=== PATIENT | male | born 1995 | race Caucasian/White ===

== ENCOUNTER 2017-06-24 15:58 | Emergency (ER) | payer MEDICAID, OTHER, SELFPAY ==
[~2017-06-24] VITALS: Ht 175.3 cm; Wt 84.1 kg
[~2017-06-24 15:58] MED LIST: /MELO7TA PO; ADDE10TA PO; ADDE5TAB PO; ALBU17IN INH; ALBU17IN2 INH; ALBUPOW9 XX; CELE10TA PO; DEPA250T2 PO; DEPA500T2 PO; EFFEXOR XR PO; LAMICTAL PO; PAXI20TA3 PO; RISP4TAB33 PO; TRAZ100T2 PO; TRAZ50TA2 PO; TRIL300S PO; TRIL600T PO
--- NOTE | 2017-06-24 19:23 | REP ---
Chest x-ray: Two views. History: Shortness of breath . Comparison study: November 12, 2011 . Findings: The lungs are well inflated and free of infiltrate. The pleural angles are sharp. The heart size is normal. Pulmonary vasculature is not increased. No significant bony abnormality is seen. Impression: Negative chest x-ray. Signed by Wagner Perkins MD 06/24/2017 07:14 P
[2017-06-24] MEDS ORDERED: ZITHTAB PO (19:27)
[2017-06-24 19:32] VITALS: BP 139/77
== END 2017-06-24 19:33 | disposition home or self-care (01) ==
LOC: M ED 15:58
DX: R59.0 Localized enlarged lymph nodes (principal); J20.9 Acute bronchitis, unspecified; Z72.0 Tobacco use; F12.10 Cannabis abuse, uncomplicated

== ENCOUNTER → 2019-02-27 | Outpatient (REF) | payer OTHER ==
[~2019-02-27] MED LIST changes: -/MELO7TA PO; +MOBI4TAB PO; +ZITHTAB PO
[2019-02-27 13:02] LABS: BASO % 0.6 % (0.0-1.0); EOS # 0.2 10^3/uL (0.0-0.50); EOS % 3.6 % (0.0-3.0); HEMATOCRIT 45.7 % (42.0-52.0); HEMOGLOBIN 15.7 g/dl (13.5-17.5); LYMPH # 2.2 10^3/uL (1.5-6.5); LYMPH % 32.5 % (24.0-44.0); MEAN CORPUSCULAR HEMOGLOBIN 29.7 pg (27.0-33.0); MEAN CORPUSCULAR HGB CONC 34.4 g/dl (32.0-36.5); MEAN CORPUSCULAR VOLUME 86.4 fl (80.0-96.0); MONO # 0.6 10^3/uL (0.0-0.8); MONO % 8.4 % (0.0-5.0); NEUTROPHILS # 3.7 10^3/uL (1.8-7.7); NEUTROPHILS % 54.8 % (36.0-66.0); PLATELET COUNT, AUTOMATED 226 10^3/uL (150-450); RED BLOOD COUNT 5.29 10^6/uL (4.30-6.10); WHITE BLOOD COUNT 6.7 10^3/uL (4.0-10.0)
[2019-02-27 13:15] LABS: ALBUMIN 4.3 GM/DL (3.2-5.2); ALT/SGPT 15 U/L (12-78); BILIRUBIN,TOTAL 0.3 MG/DL (0.2-1.0); BLOOD UREA NITROGEN 12 MG/DL (7-18); CALCIUM LEVEL 9.2 MG/DL (8.5-10.1); CARBON DIOXIDE LEVEL 27 MEQ/L (21-32); CHLORIDE LEVEL 108 MEQ/L (98-107); CHOLESTEROL LEVEL 129 MG/DL (<200); CHOLESTEROL RISK RATIO 3.909 (<5); FREE T4 1.03 NG/DL (0.76-1.46); GLOMERULAR FILTRATION RATE > 60.0 (>60); GLUCOSE, FASTING 94 MG/DL (70-100); HDL CHOLESTEROL 33 MG/DL (>40); LDL CHOLESTEROL 76 MG/DL (<100); NON-HDL-C 96 MG/DL; POTASSIUM SERUM 4.1 MEQ/L (3.5-5.1); SODIUM LEVEL 142 MEQ/L (136-145); TOTAL PROTEIN 7.3 GM/DL (6.4-8.2); TRIGLYCERIDES LEVEL 98 MG/DL (<150)
[2019-02-27 13:17] LABS: TOTAL 25(OH) VITAMIN D 25.4 NG/ML (30.0-100.0)
[2019-02-27 13:18] LABS: HEMOGLOBIN A1c 5.3 %
[2019-02-27 13:29] LABS: HEPATITIS B SURFACE ANTIGEN NEGATIVE (NEGATIVE)
[2019-02-27 13:56] LABS: HEPATITIS C VIRUS ABY INDEX 0.1 INDEX (<0.8)
[2019-02-27 13:57] LABS: HEPATITIS B CORE ANTIBODY IGM NEGATIVE (NEGATIVE); HIV 1&2 SCREEN CENTAUR NEGATIVE (NEGATIVE)
[2019-02-27 13:58] LABS: HEPATITIS A ANTIBODY IGM NEGATIVE (NEGATIVE)
[2019-02-27 14:00] LABS: APPEARANCE, URINE CLEAR (CLEAR); BACTERIA, URINE AUTO NEGATIVE (NEGATIVE); BILIRUBIN, URINE AUTO NEGATIVE (NEGATIVE); BLOOD, URINE BLOOD NEGATIVE (NEGATIVE); COLOR, URINE YELLOW (YELLOW); GLUCOSE, URINE (UA) AUTO NEGATIVE (NEGATIVE); KETONE, URINE AUTO NEGATIVE (NEGATIVE); LEUKOCYTE ESTERASE, URINE AUTO NEGATIVE (NEGATIVE); MUCUS, URINE SMALL (NEGATIVE); NITRITE, URINE AUTO NEGATIVE (NEGATIVE); PROTEIN, URINE AUTO NEGATIVE (NEGATIVE); RBC, URINE AUTO 1 /HPF (0-3); SPECIFIC GRAVITY URINE AUTO 1.023 (1.002-1.035); SQUAMOUS EPITHELIAL CELL UR AU 0 /HPF (0-6); UROBILINOGEN, URINE AUTO 0.2 mg/dL (0.0-2.0); WBC, URINE AUTO 1 /HPF (0-3)
[2019-02-27 15:30] LABS: CHLAMYDIA DNA AMPLIFICATION NEGATIVE (NEGATIVE); GC DNA AMPLIFICATION NEGATIVE (NEGATIVE)
[2019-03-03 00:07] LABS: HSV IgM TYPES 1&2 2.02 Ratio (0.00-0.90); Lyme Disease IgG/IgM Antibodie <0.91 ISR (0.00-0.90); Lyme Disease IgM Ab Quantitati <0.80 index (0.00-0.79)
== END ==
LOC: M LAB REF 12:38
PROVIDERS: ATTEND Family Medicine
DX: Z13.228 Encounter for screening for other metabolic disorders (principal); Z11.3 Encounter for screening for infections with a predominantly sexual mode of transmission

== ENCOUNTER → 2019-03-23 | Outpatient (CLI) | payer OTHER ==
--- NOTE | 2019-03-23 16:58 | REP ---
MRI of the lumbar spine without contrast Indication: Low back pain. Comparison: CT of the abdomen pelvis of 07/17/2011. Technique: MRI of the lumbar spine was performed without contrast utilizing sagittal T1, T2 and STIR weighted images as well as axial T1 and T2-weighted images. Findings: There is straightening of the lumbar that this is which could be positional or related to muscle spasm. There is mild levo curvature of the thoracolumbar spine. Vertebral body heights are maintained. There is disc desiccation and loss of disc height at L4-L5. There is multilevel central endplate irregularity consistent with Schmorl's node deformities. There is no bone marrow edema. The visualized spinal cord is unremarkable. The conus medullaris terminates at the T12-L1 level. The paraspinal soft tissues are unremarkable. Level specific observations: L1-L2, L2-L3, L3-L4: No significant spinal canal stenosis or neural foraminal compromise. L4-L5: Diffuse disc bulge. Mild narrowing of the spinal canal and right lateral recess. No significant neural foraminal narrowing. L5 S1: No significant spinal canal stenosis or neural foraminal compromise. Impression: At L4-L5, there is diffuse disc bulge resulting in mild narrowing of the spinal canal and right lateral recess. Electronically Signed by Barbara Bose MD 03/23/2019 10:18 A
== END ==
LOC: M RAD 07:08
PROVIDERS: ATTEND Family Medicine
DX: M51.26 Other intervertebral disc displacement, lumbar region (principal)

== ENCOUNTER 2020-02-20 20:16 | Emergency (ER) | payer OTHER ==
[2020-02-20] MEDS ORDERED: KETOROLAC 30 MG/ML 1ML VIAL As Ordered ONE (22:46)
[2020-02-20] MEDS ORDERED: ONDANSETRON 4MG/2ML VIAL As Ordered ONE (22:47)
[2020-02-20] MEDS ORDERED: ISOVUE-370 76% 100ML VIAL As Ordered ONE (23:55)
[2020-03-18 11:31] LABS: APPEARANCE, URINE HAZY (CLEAR); BACTERIA, URINE AUTO NEGATIVE (NEGATIVE); BILIRUBIN, URINE AUTO NEGATIVE (NEGATIVE); BLOOD, URINE BLOOD NEGATIVE (NEGATIVE); COLOR, URINE YELLOW (YELLOW); GLUCOSE, URINE (UA) AUTO NEGATIVE (NEGATIVE); KETONE, URINE AUTO NEGATIVE (NEGATIVE); LEUKOCYTE ESTERASE, URINE AUTO NEGATIVE (NEGATIVE); MUCUS, URINE LARGE (NEGATIVE); NITRITE, URINE AUTO NEGATIVE (NEGATIVE); PROTEIN, URINE AUTO 1+ mg/dL (NEGATIVE); RBC, URINE AUTO 2 /HPF (0-3); SPECIFIC GRAVITY URINE AUTO 1.027 (1.002-1.035); SQUAMOUS EPITHELIAL CELL UR AU 0 /HPF (0-6); UROBILINOGEN, URINE AUTO 0.2 mg/dL (0.0-2.0); WBC, URINE AUTO 3 /HPF (0-3)
[2020-03-18 14:32] LABS: BASO % 0.4 % (0.0-1.0); EOS # 0.1 10^3/uL (0.0-0.5); EOS % 0.8 % (0.0-3.0); HEMATOCRIT 44.6 % (42.0-52.0); HEMOGLOBIN 15.3 g/dl (13.5-17.5); LYMPH # 1.8 10^3/uL (1.5-5.0); LYMPH % 17.4 % (24.0-44.0); MEAN CORPUSCULAR HGB CONC 34.3 g/dl (32.0-36.5); MEAN CORPUSCULAR VOLUME 84.5 fl (80.0-96.0); MONO # 0.8 10^3/uL (0.0-0.8); MONO % 7.3 % (0.0-5.0); NEUTROPHILS # 7.6 10^3/uL (1.5-8.5); NEUTROPHILS % 73.7 % (36.0-66.0); PLATELET COUNT, AUTOMATED 236 10^3/uL (150-450); RED BLOOD COUNT 5.28 10^6/uL (4.30-6.10); WHITE BLOOD COUNT 10.3 10^3/uL (4.0-10.0)
[2020-03-29 08:22] LABS: ALBUMIN 4.5 GM/DL (3.2-5.2); ALT/SGPT 23 IU/L (0-32); BILIRUBIN,DIRECT 0.1 MG/DL (0.0-0.2); BILIRUBIN,TOTAL 0.6 MG/DL (0.2-1.0); BLOOD UREA NITROGEN 11 MG/DL (7-18); CALCIUM LEVEL 9.4 MG/DL (8.5-10.1); CARBON DIOXIDE LEVEL 27 mmol/L (20-29); CHLORIDE LEVEL 108 MEQ/L (98-107); CREATININE FOR GFR 1.04 MG/DL (0.70-1.30); GLOMERULAR FILTRATION RATE > 60.0 (>60); GLUCOSE, FASTING 85 MG/DL (70-100); SODIUM LEVEL 141 MEQ/L (136-145); TOTAL PROTEIN 7.7 GM/DL (6.4-8.2)
[2020-03-29 08:23] LABS: LIPASE 67 U/L (73-393)
== END 2020-02-21 01:30 | disposition home or self-care (01) ==
LOC: M ED 20:16
DX: R10.9 Unspecified abdominal pain (principal); R11.2 Nausea with vomiting, unspecified; Z88.0 Allergy status to penicillin; Z88.5 Allergy status to narcotic agent; F17.210 Nicotine dependence, cigarettes, uncomplicated; F12.20 Cannabis dependence, uncomplicated
CPT/HCPCS: 74177; 80048; 80076; 81001; 83690; 85025; 96361; 96374; 96375; 99283; J1885; J2405; Q9967

== ENCOUNTER 2020-05-06 20:20 | Emergency (ER) | payer OTHER, SELFPAY ==
[~2020-05-06] VITALS: Ht 175.3 cm; Wt 85.4 kg
[2020-05-06 20:21] VITALS: BP 132/69
--- NOTE | 2020-05-06 21:13 | REPVR ---
PROCEDURE INFORMATION: Exam: XR Left Foot Complete Exam date and time: 05/06/2020 8:31 PM Age: 24 years old Clinical indication: Pain; Foot; Left; Additional info: Injury/pain TECHNIQUE: Imaging protocol: XR Left foot. Views: 3 or more views. COMPARISON: No relevant prior studies available. FINDINGS: Bones/joints: Normal. No fracture. Soft tissues: Normal. IMPRESSION: Negative left foot. Electronically signed by: Jarret Layne On 05/06/2020 21:13:24 PM
== END 2020-05-06 22:33 | disposition home or self-care (01) ==
LOC: M ED 20:20
DX: S97.112A Crushing injury of left great toe, initial encounter (principal); W20.8XXA Other cause of strike by thrown, projected or falling object, initial encounter; Y92.9 Unspecified place or not applicable; Y99.0 Civilian activity done for income or pay; F17.200 Nicotine dependence, unspecified, uncomplicated; Z88.0 Allergy status to penicillin; Z88.6 Allergy status to analgesic agent

== ENCOUNTER 2020-08-08 15:54 | Emergency (ER) | payer OTHER ==
[~2020-08-08] VITALS: Ht 177.8 cm; Wt 80.1 kg
--- OUTSIDE RECORDS SUMMARY | 2020-08-08 16:00 | CCD ---
Author Author [facility] Organization [facility] Address Unknown Phone Unavailable Care Team Providers Care Respiratory Coordinator Name Role Phone YESICA MENENDEZ MICHAEL RPA-C Unavailable Unavailable MENENDEZ, YESICA MICHAEL RPA-C Unavailable Unavailable MENENDEZ, YESICA MICHAEL RPA-C Unavailable Unavailable MENENDEZ, YESICA MICHAEL RPA-C Unavailable Unavailable MENENDEZ, YESICA MICHAEL RPA-C Unavailable Unavailable MENENDEZ, YESICA MICHAEL RPA-C Unavailable Unavailable MENENDEZ, EYSICA MICHAEL RPA-C Unavailable Unavailable MENENDEZ, YESICA MICHAEL RPA-C Unavailable Unavailable MENENDEZ, YESICA MICHAEL RPA-C Unavailable Unavailable MENENDEZ, YESICA MICHAEL RPA-C Unavailable Unavailable MENENDEZ, YESICA MICHAEL RPA-C Unavailable Unavailable MENENDEZ, YESICA MICHAEL RPA-C Unavailable Unavailable MENENDEZ, YESICA MICHAEL RPA-C Unavailable Unavailable MENENDEZ, YESICA MICHAEL RPA-C Unavailable Unavailable MENENDEZ, YESICA MICHAEL RPA-C Unavailable Unavailable MENENDEZ, YESICA MICHAEL RPA-C Unavailable Unavailable MENENDEZ, YESICA MICHAEL RPA-C Unavailable Unavailable MENENDEZ, YESICA MICHAEL RPA-C Unavailable Unavailable MENENDEZ, YESICA MICHAEL RPA-C Unavailable Unavailable MENENDEZ, YESICA MICHAEL RPA-C Unavailable Unavailable MENENDEZ, YESICA MICHAEL RPA-C Unavailable Unavailable MENENDEZ, YESICA MICHAEL RPA-C Unavailable Unavailable MENENDEZ, YESICA MICHAEL RPA-C Unavailable Unavailable MENENDEZ, YESICA MICHAEL RPA-C Unavailable Unavailable MENENDEZ, YESICA MICHAEL RPA-C Unavailable Unavailable MENENDEZ, YESICA MICHAEL RPA-C Unavailable Unavailable MNEENDEZ, YESICA MICHAEL RPA-C Unavailable Unavailable MENENDEZ, YESICA MICHAEL RPA-C Unavailable Unavailable MENENDEZ, YESICA MICHAEL RPA-C Unavailable Unavailable MENENDEZ, YESICA MICHAEL RPA-C Unavailable Unavailable MENENDEZ, YESICA MICHAEL RPA-C Unavailable Unavailable MENENDEZ, YESICA MICHAEL RPA-C Unavailable Unavailable MENENDEZ, YESICA MICHAEL RPA-C Unavailable Unavailable MENENDEZ, YESICA MICHAEL RPA-C Unavailable Unavailable MENENDEZ, YESICA MICHAEL RPA-C Unavailable Unavailable MENENDEZ, YESICA MICHAEL RPA-C Unavailable Unavailable MENENDEZ, YESICA MICHAEL RPA-C Unavailable Unavailable MENENDEZ, YESICA MICHAEL RPA-C Unavailable Unavailable Vanessa CHAVEZ MD Unavailable Unavailable Vanessa CHAVEZ MD Unavailable Unavailable Vanessa CHAVEZ MD Unavailable Unavailable Vanessa CHAVEZ MD Unavailable Unavailable Vanessa CHAVEZ MD Unavailable Unavailable Vanessa CHAVEZ MD Unavailable Unavailable Vanessa CHAVEZ MD Unavailable Unavailable Vanessa CHAVEZ MD Unavailable Unavailable Vanessa CHAVEZ MD Unavailable Unavailable Vanessa CHAVEZ MD Unavailable Unavailable Vanessa CHAVEZ MD Unavailable Unavailable Vanessa CHAVEZ MD Unavailable Unavailable Vanessa CHAVEZ MD Unavailable Unavailable Vanessa CHAVEZ MD Unavailable Unavailable Vanessa CHAVEZ MD Unavailable Unavailable Vanessa CHAVEZ MD Unavailable Unavailable Vanessa CHAVEZ MD Unavailable Unavailable Vanessa CHAVEZ MD Unavailable Unavailable Vanessa CHAVEZ MD Unavailable Unavailable Vanessa CHAVEZ MD Unavailable Unavailable Vanessa CHAVEZ MD Unavailable Unavailable Vanessa CHAVEZ MD Unavailable Unavailable Vanessa CHAVEZ MD Unavailable Unavailable Vanessa CHAVEZ MD Unavailable Unavailable Vanessa CHAVEZ MD Unavailable Unavailable Vanessa CHAVEZ MD Unavailable Unavailable Vanessa CHAVEZ MD Unavailable Unavailable Vanessa CHAVEZ MD Unavailable Unavailable Vanessa CHAVEZ MD Unavailable Unavailable Vanessa CHAVEZ MD Unavailable Unavailable Vanessa CHAVEZ MD Unavailable Unavailable Vanessa CHAVEZ MD Unavailable Unavailable Vanessa CHAVEZ MD Unavailable Unavailable Vanessa CHAVEZ MD Unavailable Unavailable Vanessa CHAVEZ MD Unavailable Unavailable Vanessa CHAVEZ MD Unavailable Unavailable Vanessa CHAVEZ MD Unavailable Unavailable Vanessa CHAVEZ MD Unavailable Unavailable Vanessa CHAVEZ MD Unavailable Unavailable Vanessa CHAVEZ MD Unavailable Unavailable Vanessa CHAVEZ MD Unavailable Unavailable Vanessa CHAVEZ MD Unavailable Unavailable Vanessa CHAVEZ MD Unavailable Unavailable Vanessa CHAVEZ MD Unavailable Unavailable Vanessa CHAVEZ MD Unavailable Unavailable Vanessa CHAVEZ MD Unavailable Unavailable Vanessa CHAVEZ MD Unavailable Unavailable Vansesa CHAVEZ MD Unavailable Unavailable Vanessa CHAVEZ MD Unavailable Unavailable Vanessa CHAVEZ MD Unavailable Unavailable Vanessa CHAVEZ MD Unavailable Unavailable Vanessa CHAVEZ MD Unavailable Unavailable Vanessa CHAVEZ MD Unavailable Unavailable Vanessa CHAVEZ MD Unavailable Unavailable Vanessa CHAVEZ MD Unavailable Unavailable Vanessa CHAVEZ MD Unavailable Unavailable Vanessa CHAVEZ MD Unavailable Unavailable Vanessa CHAVEZ MD Unavailable Unavailable Vanessa CHAVEZ MD Unavailable Unavailable Vanessa CHAVEZ MD Unavailable Unavailable Vanessa CHAVEZ MD Unavailable Unavailable Vanessa CHAVEZ MD Unavailable Unavailable Vanessa CHAVEZ MD Unavailable Unavailable Vanessa CHAVEZ MD Unavailable Unavailable Vanessa CHAVEZ MD Unavailable Unavailable Vanessa CHAVEZ MD Unavailable Unavailable Vanessa CHAVEZ MD Unavailable Unavailable Vanessa CHAVEZ MD Unavailable Unavailable SAMMY, T CASEY MD Unavailable Unavailable SAMMY, T CASEY MD Unavailable Unavailable SAMMY, T CASEY MD Unavailable Unavailable SAMMY, T CASEY MD Unavailable Unavailable SAMMY, T CASEY MD Unavailable Unavailable SAMMY, T CASEY MD Unavailable Unavailable SAMMY, T CASEY MD Unavailable Unavailable SAMMY, T CASEY MD Unavailable Unavailable SAMMY, T CASEY MD Unavailable Unavailable SAMMY, T CASEY MD Unavailable Unavailable SAMMY, T CASEY MD Unavailable Unavailable SAMMY, T CASEY MD Unavailable Unavailable SAMMY, T CASEY MD Unavailable Unavailable SAMMY, T CASEY MD Unavailable Unavailable SAMMY, T CASEY MD Unavailable Unavailable [facility], RFROST MENENDEZ PA MICHAEL Unavailable Unavailable Re-disclosure Warning The records that you are about to access may contain information from federally-assisted alcohol or drug abuse programs. If such information is present, then the following federally mandated warning applies: This information has been disclosed to you from records protected by federal confidentiality rules (42 CFR part 2). The federal rules prohibit you from making any further disclosure of this information unless further disclosure is expressly permitted by the written consent of the person to whom it pertains or as otherwise permitted by 42 CFR part 2. A general authorization for the release of medical or other information is NOT sufficient for this purpose. The Federal rules restrict any use of the information to criminally investigate or prosecute any alcohol or drug abuse patient.The records that you are about to access may contain highly sensitive health information, the redisclosure of which is protected by Article 27-F of the [facility] Public Health law. If you continue you may have access to information: Regarding HIV / AIDS; Provided by facilities licensed or operated by the [facility] Office of Mental Health; or Provided by the [facility] Office for People With Developmental Disabilities. If such information is present, then the following [facility] mandated warning applies: This information has been disclosed to you from confidential records which are protected by state law. State law prohibits you from making any further disclosure of this information without the specific written consent of the person to whom it pertains, or as otherwise permitted by law. Any unauthorized further disclosure in violation of state law may result in a fine or long term sentence or both. A general authorization for the release of medical or other information is NOT sufficient authorization for further disc losure. Encounters Encounter Providers Location Date Indications Data Source(s ) Outpatient Attender: JERRY DOMÍNGUEZ [facility] 04/28 12:24:02 PM EDT [facility] Outpatient Attender: JERRY DOMÍNGUEZ [facility] 08/2019 08:15:00 AM EDT [facility] Outpatient Attender: MICHAEL SHON STONE [facility] 03/30/2020 08:14:59 AM EDT [facility] Outpatient Attender: JERRY DOMÍNGUEZ [facility] 02/27 04:07:03 PM EDT [facility] Outpatient Attender: MICHAEL SHON [facility]TC [facility] 03/25/2020 04:07:01 PM EDT [facility] Outpatient Attender: JERRY FERNANDEZIN [facility] 02/26 12:54:01 PM EDT [facility] Outpatient Attender: JERRY FERNANDEZIN [facility] 02/26 11:39:02 AM EDT [facility] Outpatient Attender: MICHAEL STONE [facility] 03/01/2020 12:16:01 PM EDT [facility] Outpatient Attender: CASEY CHAVEZ MD 02/18/2020 08:50:01 A M [facility] Outpatient Attender: CASEY CHAVEZ MD 02/03/2020 08:27:01 A M EDT [facility] Outpatient Attender: CASEY CHAVEZ [facility]: [facility] 01/25/2020 11:00:08 A M [facility] Outpatient Attender: CASEY CHAVEZ MD 01/25/2020 11:00:06 A M EDT [facility] Outpatient Attender: CASEY CHAVEZ MD 01/25/2020 10:27:05 A M EDT [facility] Outpatient Attender: CASEY CHAVEZ MD 01/25/2020 10:24:00 A M EDT [facility] Outpatient Attender: CASEY CHAVEZ MD 12/28/2019 12:02:05 A M EDT [facility] Outpatient Attender: CASEY CHAVEZ MD 06/17/2019 02:12:00 P M EST [facility] Medications Medication Brand Name Start Date Product Form Dose Route Admi nistrative Instructions Pharmacy Instructions Status Indications Reaction Description Data Source(s) 20 mg 03/01/2020 12:00:00 AM EDT capsule,delayed release (DR/EC) 30 TAKE ONE CAPSULE BY MOUTH EVERY MORNING ON EMPTY STOMACH TAKE ONE CAPSULE BY MOUTH EVERY MORNING ON EMPTY STOMACH SOLD: 03/03/2020 [facility] 300 mg 01/25/2020 12:00:00 AM EDT capsule 28 TAKE ONE CAPSULE BY MOUTH EVERY 6 HOURS UNTIL FINISHED TAKE ONE CAPSULE BY MOUTH EVERY 6 HOURS UNTIL FINISHED SOLD: 01/25/2020 [facility] Insurance Providers Payer name Policy type / Coverage type Policy ID Covered republican ID Covered republican's relationship to [place] Policy [place] Plan Information [facility] [id number] SP [id number] [facility] O [id number] S [id number] SELF PAY ONLY [id number] SP [id number] [facility] [id number] SP [id number] Managed Care - [facility] Community Plan P [id number] S [id number] Medicaid S [id number] S [id number] Managed Care [facility] Plan P [id number] S [id number] D Managed Care [facility] O [id number] S [id number] Managed Care [facility] Plan P [id number] S [id number] Medicaid S [id number] S [id number] Medicaid Dental O [id number] S [id number] ALEC [id number] SP [id number] [facility] [id number] SP [id number] Managed Care - Community Plan [facility] P [id number] S [id number] Managed Care - Community Plan [facility] P [id number] S [id number] Medicaid S [id number] S [id number] MEDICAID [id number] SP [id number] MEDICAID ([id number] SELF PAY ONLY UNAVAILABLE UNAV AILABLE SELF PAY UNAVAILABLE UNAVAILA BLE [facility] [id number] SELF CP [id number] MEDICAID [id number] SELF [id number] MEDICAID [id number] SELF [id number] Managed Care - Community Plan [facility] P [id number] S [id number] Managed Care - Community Plan [facility] S [id number] S [id number] [facility] PLAN [id number] SP [id number] ALEC [id number] ARABELLA [id number] ALEC [id number] SP [id number] O BLUE [id number] Problems, Conditions, and Diagnoses Code Display Name Description Problem Type Effective Dates Data Source(s) 305.1 Tobacco user Tobacco user 03/01/2020 12:15:31 P M EDT [facility] R10.84 Generalized abdominal pain Generalized abdominal pain 03/01/2020 12:15:31 PM EDT [facility] 530.81 Gastro-esophageal reflux disease without esophagitis Gastro-esophageal reflux disease without esophagitis 03/01/2020 12:15:31 PM ED T [facility] 525.10 Teeth extraction Teeth extraction 01/25/2020 10 :59:37 AM EDT [facility] Results ID Date Data Source [id number] 03/01/2020 11:47:35 AM T [facility] Measurements & CalculationsHeight: 71.50 inches 181.61 cm 5 ft. 11.5 in.Weight: 182 pounds 2 oz. 82.79 kg Body Mass Index (BMI): 25.14BMI Interpretation: OverweightBody Surface Area (BSA): 2.04Weight Management Education Done (Nutrition/Physical Activity)Vital SignsTemperature: 98.6F 37C tympanic Pulse Rate: 73 beats/minuteRespiratory Rate: 18 respirations/minuteBlood Pressure: 109/71 right arm sitting automaticO2 Saturation: 97% Vital Signs performed by: Olamide Buck LPN, March 01, 2020 11:48 AMInitial Intake Information From: patientRoom #: 1Infectious Disease / Travel ScreeningRecent travel for you or any close contacts? NoHave you had any close contact with anyone diagnosed with or under investigation for COVID-19 (coronavirus)? NoFever? NoRespiratory symptoms: cough, cold, congestion, shortness of breath, difficulty breathing? NoLoss of smell? NoLoss of taste? NoSmoking, Tobacco, Vaping or Smoke Exposure StatusSmoke Status: current every day smokerTobacco Use: YesAdv to Quit: YesDo you vape? NoPassive Smoke Exposure: YesHealthcare HistorySince your last office visit...Have you been admitted to the hospital? NoHave you been to an emergency room (ER) or urgent care clinic? Yes - stomach pains. SMCEmergency room (ER) or urgent care date reported today: 02/20/2020Have you seen another healthcare provider? NoHave you seen a dentist? NoIntake performed by: Olamide Buck LPN, March 01, 2020 11:48 AMRate Your HealthIn general, would you say your health is? FairPain AssessmentAre you currently having any pain which... You would like your provider to address? No Affects your activity level? NoDepression Screening - PHQ-2Over the last two weeks, have you... Had little interest or pleasure in doing things? Not at all Been feeling down, depressed, or hopeless? Not at all PHQ-2 Score: 0Anxiety Screening - LUCIA-2Over the last two weeks, have you been... Feeling nervous, anxious, or on edge? Several days Unable to stop or control worrying? Several days LUCIA-2 Score: 2Food InsecurityWithin the past year...Did you worry whether your food would run out before you got money to buy more? NoWas there a time when the food you bought didn't last and you didn't have money to get more? NoGeneralized Anxiety Disorder 7-Item Screening (LUCIA-7)Answer Guide:0 = Not at all1 = Several days2 = Over half the days3 = Nearly every dayOver the last 2 weeks, how often have you been bothered by the following problems?Feeling nervous, anxious, or on edge: 1Not being able to stop or control worryinWorrying too much about different things: 1Trouble relaxinBeing so restless that it's hard to sit still: 1Becoming easily annoyed or irritable: 1Feeling afraid as if something awful might happen: 1Answer Guide:0 = Not difficult at all1 = Somewhat difficult2 = Very difficult3 = Extremely difficultHow difficult have these made it for you to do your work, take care of things at home, or get along with other people? 1GAD- 7 Screening Results LUCIA-2 Score: 2GAD-7 Score: 7Functional Impairment: Somewhat difficultRecommendation: Mild anxietyScreening, Brief Intervention, & Referral to Treatment (SBIRT)Pre-Screening Questions How many times have you have 5 or more drinks in a day? 0How many times have you used an illegal drug or used a prescription medication for a non-medical reason? 0Performed by: Olamide Buck LPN, March 01, 2020 11:53 AMPatient History Medical History:AsthmaAnxiety DisorderDepressionBi-polarADHDSurgical History:bilateral hernia-age 3elbow repairR knee arthoscopeFamily History:Family History of AlcoholismFamily History of ArthritisFH of AnxietyFamily History of AsthmaFH DepressionFH DiabetesFH Heart DiseaseFamily History of Severe AllergiesFH Other CancerFH Psychiatric CareFH P M SSocial/Personal History: Advised to Quit/Tobacco Education: YesChief Complainter f/uHistory of Present Illness (HPI)24 yo male pt presents for [facility] ER f/u for stomach pain. Pt was seen at [facility] ER 02/20/2020, unfortunately no records are available due to [facility] computer downtime currently. Pt reports they did a CT scan with contrast, reports "internal stressor on the right side" that could represent an ulcer but too small to see. Blood work was "perfect" per patient. ER discharged him with dicyclomine, has been taking as needed with initial relief but none in the last few days. Pt's girlfriend states has been going on 3.5 months. Pt states on 02/15/2020 he states he vomited blood one episode: food, mucous, and bright red blood. Admits to significant heartburn chronically that he states no one has ever treated for him.HPI performed by: Michael PANCHAL, March 01, 2020 12:01 PMTransitions of Care InboundProblem ReviewProblem List was reviewed and/or updated during this visit.Medication Reconciliation & ReviewMedication List was reviewed and/or updated during this visit, including review of any over-the- counter medications, herbal therapies, and/or supplements.Allergy ReviewAllergy List was reviewed and/or updated during this visit.Adult Preventive CareScreening Tobacco Screening: Smoking Status: current every day smoker (03/01/2020) Tobacco Use: Currently (03/01/2020) Advised to Quit: Yes (03/01/2020)Labs/Meds/Other Counseling-Nutrition and Physical Activity:BMI Interpretation: Overweight (03/01/2020) Counseling: Done (03/01/2020) Physical Activity: Done (03/01/2020)Review of Systems General: Complains of loss of appetite. Denies chills, dizziness, fatigue, fever, headache. Cardiovascular: Denies chest pain, palpitations, feeling faint. Respiratory: Denies cough, difficulty breathing, shortness of breath. Gastrointestinal: Complains of see HPI, nausea, vomiting, pain or discomfort, abdominal pain, heartburn. Denies diarrhea, constipation, blood in stool, black or tarry stools. Skin: Denies rash, suspicious lesions. Neurologic: Denies weakness, feeling faint. Heme/Lymphatic: Denies abnormal bruising. Physical ExamGeneral Appearance: well nourished, well hydrated, no acute distressEyes, External: conjunctivae and lids normal, EOMIRespiratory, Auscultation: clear to auscultation bilaterally; no rales, rhonchi, or wheezesCardiovascular, Auscultation: S1, S2 audible; no murmur, rub, or gallop; RRRPeripheral Circulation: no clubbing, cyanosis, edema, or varicositiesAbdomen: soft, mild right sided abdominal pain, no rebound, no guarding, no rigidity, no masses, bowel sounds normalGait & Station: normalSkin, Inspection: no rashes, lesions, or ulcerationsOrientation: oriented to time, place, and personJudgment & Insight: intactCare Management Plan Transitions of CareInboundRate Your HealthIn general, would you say your health is? FairAssessment & Plan Problems:Added: Generalized abdominal pain (LQT36-J73.84) Assessment: Instructions: Suspect IBS versus small ulcer per patient report. Again, no records available at this time. Continue dicyclomine and add 8 week course of omeprazole daily. Consider GI referral if symptoms worsen.Gastro- esophageal reflux disease without esophagitis (ICD-530.81) (KKK85-I01.9) Assessment: Instructions: As above. Low acid diet reviewed.Tobacco user (ICD-305.1) (HKS17-X09.200) Assessment: Instructions: Smoking cessation counseling was recommended with patient today.Patient Instructions/Care Plan: Generalized abdominal pain: Suspect IBS versus small ulcer per patient report. Again, no records available at this time. Continue dicyclomine and add 8 week course of omeprazole daily. Consider GI referral if symptoms worsen.Gastro- esophageal reflux disease without esophagitis: As above. Low acid diet reviewed.Tobacco user: Smoking cessation counseling was recommended with patient today. Plan developed in collaboration with patient and/or familyMedications:OMEPRAZOLE 20 MG ORAL CAPSULE DELAYED RELEASEDICYCLOMINE HCL 20 MG ORAL TABLETCOLACE 100 MG ORAL CAPSULEMedication Changes:Added: DICYCLOMINE HCL 20 MG ORAL TABLET-Take 1 tablet po prn up to QIDNew Prescription:OMEPRAZOLE 20 MG ORAL CAPSULE DELAYED RELEASE-Take 1 capsule po QAM on an empty stomach Qty: 30[Capsule] Refills: 1 Method: ElectronicRemoved:CLINDAMYCIN HCL 300 MG CAPS-1 every 6 hours until finished Qty: 28[Capsule] Refills: 0, VITAMIN D 1000 UNIT ORAL TABLET-1 po daily, ACETAMINOPHEN-CODEINE #3 300-30 MG ORAL TABLET-1 po tid prn severe pain MDD 3, ROBAXIN 500 MG ORAL TABLET-1 po tid prn spasms, IBUPROFEN 600 MG ORAL TABLET-1 po tid with mealsAllergies:MORPHINE (Critical)PCN (Severe)* SEASONAL (Mild)Orders:Adult - Ofc Vst, EST, Level III [CPT-74092] Follow-Up Return to clinic: as needed Clinical Visit Summary Completed Name Value Range Interpretation Code Description Data Francheska rce(s) Supporting Document(s) ID Date Data Source [id number] 02/20/2020 10:41:[address] [facility] Name Value Range Interpretation Code Description Data Francheska rce(s) Supporting Document(s) BG FASTING 85 mg/dL 70-100 [facility] ID Date Data Source [id number] 02/20/2020 10:41:00 PM EDT [facility] Name Value Range Interpretation Code Description Data Francheska rce(s) Supporting Document(s) HCT 44.6 % 42.0-52.0 N [facility] HGB 15.3 g/dL 13.5-17.5 N [facility] MCH 34.3 G/DL pg 32.0-36.5 N [facility] MCHC 29.0 PG % 27.0-33.0 N [facility] PLATELETS 236 10 10*3/mm3 150-450 N [facility] RBC 5.28 10 10*6/mm3 4.30-6.10 N [facility] RDW 13.0 % 11.5-14.5 N [facility] WBC TOTAL 10.3 4.0-10.0 H [facility] ID Date Data Source [id number] 02/20/2020 10:15:00 PM EDT [facility] Name Value Range Interpretation Code Description Data Francheska rce(s) Supporting Document(s) APPEARANCE U HAZY CLEAR N [facility] SPEC GR URIN 1.027 1.002-1.035 N [facility] UA COLOR YELLOW YELLOW N [facility] ID Date Data Source [id number] 01/25/2020 10:11:07 AM EDT [facility] Current Problems: Teeth extraction (ICD- 525.10) (URD14-M16.499)Vitamin D deficiency, unspecified (ELA95-Q93.9)Low back pain (ICD-724.2) (ICD10- M54.5)Screening examination for venereal disease (ICD-V74.5) (ICD10- Z11.3)Encounter for screening for other metabolic disorders (ICD10- Z13.228)Bipolar 1 disorder (ICD-296.7) (FYV45-J46.9)DENTAL PAIN (ICD-525.9) (TVF46-N76.8)VITAMIN D DEFICIENCY (ICD-268.9) (AFH74-J14.9)UNSPECIFIED DENTAL CARIES (ICD-521.00) (GYX49-E01.9)HYPERHIDROSIS (ICD-780.8) (XJU60-X17)ROUTINE GENERAL MEDICAL EXAM@[facility] [place] [facility] (ICD-V70.0) (UDI51-I87.00)ALLERGY, ENVIRONMENTAL (ICD-995.3) (WCI09-Y71.40)FH P M S (ICD-V19.8)FH PSYCHIATRIC CARE (ICD-V17.0) (RQX51-M99.8)FH OTHER CANCER (ICD-V16.9) (EUM70-U20.9)FAMILY HISTORY OF SEVERE ALLERGIES (ICD-V19.6)FH HEART DISEASE (ICD-V17.49) (AQP53-T92.49)FH DIABETES (ICD-V18.0) (UYX15-Q65.3)FH DEPRESSION (ICD-V17.0) (JKC58-D44.8)FAMILY HISTORY OF ASTHMA (ICD-V17.5) (AUQ04-B22.5)FH OF ANXIETY (ICD-V17.0) (ICD10- Z81.8)FAMILY HISTORY OF ALCOHOLISM (ICD-V61.41) (KMF19-M96.72)DEPRESSION (ICD- 311) (OBQ96-D76.9)ANXIETY DISORDER (ICD-300.00) (XDL26-J36.9)ASTHMA (ICD-493.90) (WWA77-G51.909)Current Medications: CLINDAMYCIN HCL 300 MG CAPS (CLINDAMYCIN HCL) 1 every 6 hours until finished; Route: ORALVITAMIN D 1000 UNIT ORAL TABLET (CHOLECALCIFEROL) 1 po daily; Route: ORALACETAMINOPHEN-CODEINE #3 300-30 MG ORAL TABLET (ACETAMINOPHEN-CODEINE) 1 po tid prn severe pain MDD 3; Route: ORALCOLACE 100 MG ORAL CAPSULE (DOCUSATE SODIUM) 1 po tid prn constipation; Route: ORALIBUPROFEN 600 MG ORAL TABLET (IBUPROFEN) 1 po tid with meals; Route: ORALROBAXIN 500 MG ORAL TABLET (METHOCARBAMOL) 1 po tid prn spasms; Route: ORALCurrent Allergies: MORPHINE (Critical)PCN (Severe)* SEASONAL (Mild) Dental Chart: Procedures:Type - CDT Code - Description B - (D0330) Panoramic film (Performed by Marcy Owusu DMD) B - (D0140) Limited oral evaluation - problem focused on Tooth # 27 (Performed by Marcy Owusu DMD) Treatments:Type - CDT Code - Description T - (D7140) Extraction, erupted tooth or exposed root (elevation and/or forceps removal) on Tooth # 2 (Performed by Marcy Owusu DMD) T - (D7140) Extraction, erupted tooth or exposed root (elevat ion and/or forceps removal) on Tooth # 18 (Performed by Marcy Owusu DMD) T - (D7140) Extraction, erupted tooth or exposed root (elevation and/or forceps removal) on Tooth # 27 (Performed by Marcy Owusu DMD) T - (D7140) Extraction, erupted tooth or exposed root (elevation and/or forceps removal) on Tooth # 32 (Performed by Marcy Owusu DMD) T - (D7140) Extraction, erupted tooth or exposed root (elevation and/or forceps removal) on Tooth # 11 (Performed by Marcy Owusu DMD) T - (D7140) Extraction, erupted tooth or exposed root (elevation and/or forceps removal) on Tooth # 16 (Performed by Marcy Owusu DMD) T - (D7140) Extraction, erupted tooth or exposed root (elevation and/or forceps removal) on Tooth # 1 (Performed by Marcy Owusu DMD) T - (D7140) Extraction, erupted tooth or exposed root (elevation and/or forceps removal) on Tooth # 10 (Performed by Marcy Owusu DMD) T - (D7140) Extraction, erupted tooth or exposed root (elevation and/or forceps removal) on Tooth # 17 (Performed by Marcy Owusu DMD) T - (D7140) Extraction, erupted tooth or exposed root (elevation and/or forceps removal) on Tooth # 7 (Performed by Marcy Owusu DMD) T - (D7140) Extraction, erupted tooth or exposed root (elevation and/or forceps removal) on Tooth # 15 (Performed by Marcy Owusu DMD) T - (D7140) Extraction, erupted tooth or exposed root (elevation and/or forceps removal) on Tooth # 28 (Performed by Marcy Owusu DMD) T - (D7140) Extraction, erupted tooth or exposed root (elevation and/or forceps removal) on Tooth # 6 (Performed by Marcy Owusu DMD) Chart Notes:clinton (Jan 25 2020 10:58AM): Additional PPE requirements due to COVID-19 in the dental setting, N95, surgical mask, hair covering, gown and shield.S: CC: pt states his lower right canine is creating pressure in gums. generalized decay and plaque buildup. Does not remember last dental visit. O: RMHx (Asthma,ADHD, PCN Allergy, Allergy to local anesthetics-Morphine, no surgical history, no medications on paper however enterted into chart was seeing Dr Andrew Only taking Vit D 3 ) HPI: 1days, painful for months PL:10 BP: 156/84 p-6. PA PANO Exposed (Dexis) unable to capture roots on PA radiograph. Pt. still has multiple lingual and buccal caries that is large (questionable status)A: DDS recommends extraction of multiple teeth due to caries, given the Pt the option to discuss with OS for possible FME. DX: loss of teeth due to cariesP:Refer pt. for OS for either full mouth exts or just exts of recommended teeth from today. E-scribe Clyndamycin 300mg q6h until gone dispense 28 tabs zero refills. Pat's lukas esqueda Informed Pt about new pain management policy of the clinic regarding about narcotic,told pt to alternate Ibuprophen 600- 800mg and tylenol 500mg every 4 to 6 hrs for pain when needed. Assisted By: IVETH NV: NPCE recommened. Marcy Owusu DMD by clinton (01/25/2020 10:58 AM): Tooth Notes and Watches: Assessment & Plan Problems:Added: Teeth extraction (ICD-525.10) (ICD10- K08.499)Medications:CLINDAMYCIN HCL 300 MG CAPSVITAMIN D 1000 UNIT ORAL T ABLETACETAMINOPHEN-CODEINE #3 300-30 MG ORAL TABLETCOLACE 100 MG ORAL CAPSULEIBUPROFEN 600 MG ORAL TABLETROBAXIN 500 MG ORAL TABLETMedication Changes:New Prescription:CLINDAMYCIN HCL 300 MG CAPS-1 every 6 hours until finished Qty: 28[Capsule] Refills: 0 Method: ElectronicAllergies:MORPHINE (Critical)PCN (Severe)* SEASONAL (Mild)Orders:Oral Surgery Referral [CPT-34121] Name Value Range Interpretation Code Description Data Francheska rce(s) Supporting Document(s) Procedure
[2020-08-08] MEDS ORDERED: CYCLOBENZAPRINE 10MG TABLET PO ONE (17:45)
[2020-08-08] MEDS ORDERED: LIDOCAINE 5% (LIDODERM) PATCH TD ONE (17:45)
[2020-08-08] MEDS ORDERED: methylPREDNISolone 125MG 2ML VIAL IM ONE (17:45)
[2020-08-08] MEDS ORDERED: KETOROLAC 60MG 2ML VIAL IM ONE (17:45)
--- NOTE | 2020-08-08 18:19 | REPVR ---
PROCEDURE INFORMATION: Exam: CT Lumbar Spine Without Contrast Exam date and time: 08/08/2020 5:34 PM Age: 25 years old Clinical indication: Low back pain; Additional info: Severe R lower back pain TECHNIQUE: Imaging protocol: Computed tomography images of the lumbar spine without contrast. Radiation optimization: All CT scans at this facility use at least one of these dose optimization techniques: automated exposure control; mA and/or kV adjustment per patient size (includes targeted exams where dose is matched to clinical indication); or iterative reconstruction. COMPARISON: MRI-Spine, L.S. without con 03/23/2019 7:58 AM FINDINGS: Vertebrae: Angulation or scoliosis of the lumbar spine. No visualized acute fracture involving the lumbar spine. Discs/Spinal canal/Neural foramina: Disc bulging is visualized at L2-L3 and L3-L4. There is mild narrowing of the thecal sac at L3-L4 with minimal narrowing of the thecal sac at L2-L3. A posterior disc protrusion is identified at L4-L5, with severe narrowing of the thecal sac. Narrowing of both lateral recesses visualized at L4-L5. Mild disc bulging is identified at L5-S1. There is tapering of the thecal sac at L5-S1. Mild bilateral neural foraminal narrowing at L4-L5. Soft tissues: Unremarkable. IMPRESSION: 1. No visualized acute fracture involving the lumbar spine. 2. Angulation or scoliosis of the lumbar spine. 3. A posterior disc protrusion is identified at L4-L5, with severe narrowing of the thecal sac. Narrowing of both lateral recesses visualized at L4-L5. This can be further evaluated with MRI. 4. There is mild narrowing of the thecal sac at L3-L4, with minimal narrowing of the thecal sac at L2-L3. 5. Mild bilateral neural foraminal narrowing at L4-L5. Electronically signed by: Samson Zurita On 08/08/2020 18:19:27 PM
--- OUTSIDE RECORDS SUMMARY | 2020-08-08 18:21 | CCD ---
Author Author [facility] Organization [facility] Address Unknown Phone Unavailable Care Team Providers Care Cane Burner Name Role Phone YESICA MENENDEZ MICHAEL RPA-C [...] YESICA MICHAEL RPA-C Unavailable Unavailable MENENDEZ, YESICA MIHCAEL RPA-C Unavailable Unavailable MENENDEZ, YESICA MICHAEL RPA-C [...] is protected by Article 27-F of the [facility] Public Health law. If you continue you may have access to information: Regarding HIV / AIDS; Provided by facilities licensed or operated by the [facility] Office of Mental Health; or Provided by the [facility] Office for People With Developmental Disabilities. If such information is present, then the following [facility] mandated warning applies: This information has [...] law may result in a fine or fpc sentence or both. A general authorization for the release of medical or other information is NOT sufficient authorization for further disc losure. Encounters Encounter Providers Location Date Indications Data Source(s ) Outpatient Attender: JERRY DOMÍNGUEZ [facility] 04/28 12:24:02 PM EDT [facility] Outpatient Attender: JERRY DOMÍNGUEZ [facility] 08/2019 08:15:00 AM EDT [facility] Outpatient Attender: MICHAEL SHON STONE [facility] 03/30/2020 08:14:59 AM EDT [facility] Outpatient Attender: JERRY DOMÍNGUEZ [facility] 02/27 04:07:03 PM EDT [facility] Outpatient Attender: MICHAEL SHON HUNTC [facility] 03/25/2020 04:07:01 PM EDT [facility] Outpatient Attender: JERRY FERNANDEZIN [facility] 02/26 12:54:01 PM EDT [facility] Outpatient Attender: JERRY FERNANDEZIN [facility] 02/26 11:39:02 AM EDT [facility] Outpatient Attender: MICHAEL STONE [facility] 03/01/2020 12:16:01 PM EDT [facility] Outpatient Attender: CASEY CHAVEZ MD 02/18/2020 08:50:01 A M [facility] Outpatient Attender: CASEY CHAVEZ MD 02/03/2020 08:27:01 A M EDT [facility] Outpatient Attender: CASE[facility]AVEZ [facility] 01/25/2020 11:00:08 A M [facility] Outpatient Attender: CASEY CHAVEZ MD 01/25/2020 11:00:06 A M EDT [facility] Outpatient Attender: CASEY CHAVEZ MD 01/25/2020 10:27:05 A M EDT [facility] Outpatient Attender: CASEY CHAVEZ MD 01/25/2020 10:24:00 A M EDT [facility] Outpatient Attender: CASEY CHAVEZ MD 12/28/2019 12:02:05 A M EDT [facility] Outpatient Attender: CASEY CHAVEZ MD 06/17/2019 02:12:00 P M EST [facility] Medications Medication Brand Name Start Date Product [...] relationship to bergman Policy [place] Plan Information [facility] COMMUNITY PL[facility] [id number] SP [id number] [facility] O [id number] S [id number] SELF PAY ONLY [id number] SP [id number] [facility] COMMUNITY PLAN [facility] [id number] SP [id number] Managed Care - [facility] Community Plan P [id number] S [id number] Medicaid S [id number] S [id number] Managed Care [facility] Plan P [id number] S [id number] D Managed Care [facility] O [id number] S [id number] Managed Care [facility] Plan P [id number] S [id number] Medicaid S [id number] S [id number] Medicaid Dental O [id number] S [id number] ALEC [id number] SP [id number] [facility] COMMUNITY PLAN [facility] [id number] SP [id number] Managed Care - Community Plan [facility] P [id number] S [id number] Managed Care - Community Plan [facility] P [id number] S [id number] Medicaid S [id number] S [id number] MEDICAID [id number] SP [id number] MEDICAID ([id number]) [id number] SELF PAY ONLY UNAVAILABLE UNAV AILABLE SELF PAY UNAVAILABLE UNAVAILA BLE [facility] [id number] SELF CP [id number] MEDICAID [id number] SELF [id number] MEDICAID [id number] SELF [id number] Managed Care - Community Plan [facility] P [id number] S [id number] Managed Care - Community Plan [facility] S [id number] S [id number] [facility] PLAN [id number] SP [id number] ALEC [id number] ARABELLA [id number] ALEC [id number] SP [id number] O BLUE [id number] Problems, Conditions, and Diagnoses Code Display Name Description Problem Type Effective Dates Data Source(s) 305.1 Tobacco user Tobacco user 03/01/2020 12:15:31 P M EDT [facility] R10.84 Generalized abdominal pain Generalized abdominal pain 03/01/2020 12:15:31 PM EDT [facility] 530.81 Gastro-esophageal reflux disease without esophagitis Gastro-esophageal reflux disease without esophagitis 03/01/2020 12:15:31 PM ED T [facility] 525.10 Teeth extraction Teeth extraction 01/25/2020 10 :59:37 AM EDT [facility] Results ID Date Data Source [id number] 03/01/2020 11:47:35 AM T [facility] Measurements & CalculationsHeight: 71.50 inches 181.61 cm [...] Illness (HPI)24 yo male pt presents for [facility] ER f/u for stomach pain. Pt was seen at [facility] ER 02/20/2020, unfortunately no records are available due to [facility] computer downtime currently. Pt reports they did [...] FairAssessment & Plan Problems:Added: Generalized abdominal pain (VAX45-F19.84) Assessment: Instructions: Suspect IBS versus small ulcer per patient report. Again, no records available at this time. Continue dicyclomine and add 8 week course of omeprazole daily. Consider GI referral if symptoms worsen.Gastro- esophageal reflux disease without esophagitis (ICD-530.81) (CCE03-S34.9) Assessment: Instructions: As above. Low acid diet reviewed.Tobacco user (ICD-305.1) (MXK84-O45.200) Assessment: Instructions: Smoking cessation counseling was recommended [...] (Mild)Orders:Adult - Ofc Vst, EST, Level III [CPT-21862] Follow-Up Return to clinic: as needed Clinical Visit Summary Completed Name Value Range Interpretation Code Description Data Francheska rce(s) Supporting Document(s) ID Date Data Source [id number] 02/20/2020 10:41:00 PM EDT [facility] Name Value Range Interpretation Code Description Data Francheska rce(s) Supporting Document(s) BG FASTING 85 mg/dL 70-100 [facility] ID Date Data Source [id number] 02/20/2020 10:41:00 PM EDT [facility] Name Value Range Interpretation Code Description Data Francheska rce(s) Supporting Document(s) HCT 44.6 % 42.0-52.0 N [facility] HGB 15.3 g/dL 13.5-17.5 N [facility] MCH 34.3 G/DL pg 32.0-36.5 N [facility] MCHC 29.0 PG % 27.0-33.0 N [facility] PLATELETS 236 10 10*3/mm3 150-450 N [facility] RBC 5.28 10 10*6/mm3 4.30-6.10 N [facility] RDW 13.0 % 11.5-14.5 N [facility] WBC TOTAL 10.3 4.0-10.0 H [facility] ID Date Data Source [id number] 02/20/2020 10:15:00 PM EDT [facility] Name Value Range Interpretation Code Description Data Francheska rce(s) Supporting Document(s) APPEARANCE U HAZY CLEAR N [facility] SPEC GR URIN 1.027 1.002-1.035 N [facility] UA COLOR YELLOW YELLOW N [facility] ID Date Data Source [id number] 01/25/2020 10:11:07 AM EDT [facility] Current Problems: Teeth extraction (ICD- 525.10) (BME48-Z28.499)Vitamin D deficiency, unspecified (OOB25-Z97.9)Low back pain (ICD-724.2) (ICD10- M54.5)Screening examination for venereal disease (ICD-V74.5) (ICD10- Z11.3)Encounter for screening for other metabolic disorders (ICD10- Z13.228)Bipolar 1 disorder (ICD-296.7) (PBS98-H96.9)DENTAL PAIN (ICD-525.9) (JMY02-L53.8)VITAMIN D DEFICIENCY (ICD-268.9) (FSP05-C67.9)UNSPECIFIED DENTAL CARIES (ICD-521.00) (KHC92-E53.9)HYPERHIDROSIS (ICD-780.8) (JNJ63-J26)ROUTINE GENERAL MEDICAL EXAM@[facility] FACL (ICD-V70.0) (YPQ57-Y44.00)ALLERGY, ENVIRONMENTAL (ICD-995.3) (BDM03-M51.40)FH P M S (ICD-V19.8)FH PSYCHIATRIC CARE (ICD-V17.0) (RJO45-G86.8)FH OTHER CANCER (ICD-V16.9) (QZL27-X11.9)FAMILY HISTORY OF SEVERE ALLERGIES (ICD-V19.6)FH HEART DISEASE (ICD-V17.49) (DRX33-Z83.49)FH DIABETES (ICD-V18.0) (GWM59-L69.3)FH DEPRESSION (ICD-V17.0) (ZOH44-O58.8)FAMILY HISTORY OF ASTHMA (ICD-V17.5) (ZWN68-S81.5)FH OF ANXIETY (ICD-V17.0) (ICD10- Z81.8)FAMILY HISTORY OF ALCOHOLISM (ICD-V61.41) (ASU89-E27.72)DEPRESSION (ICD- 311) (SCY90-I47.9)ANXIETY DISORDER (ICD-300.00) (XMJ37-R09.9)ASTHMA (ICD-493.90) (DEH98-U70.909)Current Medications: CLINDAMYCIN HCL 300 MG CAPS (CLINDAMYCIN [...] ElectronicAllergies:MORPHINE (Critical)PCN (Severe)* SEASONAL (Mild)Orders:Oral Surgery Referral [CPT-15245] Name Value Range Interpretation Code Description Data Francheska rce(s) Supporting Document(s) Procedure
[2020-08-08 18:47] VITALS: BP 136/81
[2020-08-08] MEDS ORDERED: **NOTE PATIENT COMMENT** MISC XX SCH (21:00)
== END 2020-08-08 18:58 | disposition home or self-care (01) ==
LOC: M ED 15:54
DX: M51.26 Other intervertebral disc displacement, lumbar region (principal); M48.061 Spinal stenosis, lumbar region without neurogenic claudication; F17.200 Nicotine dependence, unspecified, uncomplicated; F12.10 Cannabis abuse, uncomplicated; Z88.0 Allergy status to penicillin; Z88.6 Allergy status to analgesic agent
CPT/HCPCS: 72131; 96372; 99283; J1885; J2930

== ENCOUNTER 2022-10-23 15:09 | Emergency (ER) | payer OTHER ==
[~2022-10-23] VITALS: Ht 175.3 cm; Wt 92.4 kg
[~2022-10-23 15:09] MED LIST changes: -ADDE5TAB PO; +ADDERALL5 MG PO
[2022-10-23] MEDS ORDERED: IBUP-1114 PO (15:15)
[2022-10-23] MEDS ORDERED: KETOROLAC 30 MG/ML 1ML VIAL IM ONE (16:50)
[2022-10-23] MEDS ORDERED: GABAPENTIN 300 MG CAP PO ONE (16:50)
[2022-10-23] MEDS ORDERED: CYCLOBENZAPRINE 5MG TABLET PO ONE (16:50)
[2022-10-23] MEDS ORDERED: LIDOCAINE 5% (LIDODERM) PATCH TD ONE (16:50)
[2022-10-23] MEDS ORDERED: CYCL-707 PO (17:55)
[2022-10-23] MEDS ORDERED: LIDO5DIS41 TD (17:55)
[2022-10-23] MEDS ORDERED: KETO10TAB PO (17:55)
[2022-10-23 18:11] VITALS: BP 144/87
== END 2022-10-23 18:13 | disposition home or self-care (01) ==
LOC: M ED 15:09
DX: M54.31 Sciatica, right side (principal); M54.50 Low back pain, unspecified; J45.909 Unspecified asthma, uncomplicated; K21.9 Gastro-esophageal reflux disease without esophagitis; F41.9 Anxiety disorder, unspecified; F32.A Depression, unspecified; F17.210 Nicotine dependence, cigarettes, uncomplicated; Z88.0 Allergy status to penicillin; Z88.8 Allergy status to other drugs, medicaments and biological substances; Z88.5 Allergy status to narcotic agent
CPT/HCPCS: 96372; 99283; J1885

== ENCOUNTER → 2022-12-18 | Outpatient (CLI) | payer OTHER ==
[~2022-12-18] MED LIST changes: +CYCL-707 PO; +IBUP-1114 PO; +KETO10TAB PO; +LIDO5DIS41 TD
== END ==
LOC: M WUC 12:47
PROVIDERS: ATTEND Nurse Practitioner Family
DX: M54.50 Low back pain, unspecified (principal)

== ENCOUNTER 2022-12-19 07:53 | Outpatient (RCR) | payer OTHER | END 2022-12-26 | LOC: M PT 07:53 | PROVIDERS: ATTEND Nurse Practitioner Family | DX: M54.50 Low back pain, unspecified (principal) ==

== ENCOUNTER 2023-01-23 09:10 | Outpatient (RCR) | payer OTHER | END 2023-01-25 | LOC: M PT 09:10 | PROVIDERS: ATTEND Nurse Practitioner Family | DX: M54.50 Low back pain, unspecified (principal) ==

== ENCOUNTER 2023-02-19 09:53 | Outpatient (RCR) | payer OTHER | END 2023-02-25 | LOC: M PT 09:53 | PROVIDERS: ATTEND Nurse Practitioner Family | DX: M54.50 Low back pain, unspecified (principal) ==

== ENCOUNTER → 2023-05-28 | Outpatient (REF) | payer OTHER ==
[2023-05-28 17:38] LABS: BASO # 0.1 10^3/uL (0.0-0.2); BASO % 0.6 % (0.0-1.0); EOS # 0.4 10^3/uL (0.0-0.5); EOS % 4.1 % (0.0-3.0); HEMATOCRIT 42.9 % (42.0-52.0); HEMOGLOBIN 14.4 g/dl (13.5-17.5); LYMPH # 2.6 10^3/uL (1.5-5.0); LYMPH % 27.1 % (24.0-44.0); MEAN CORPUSCULAR HEMOGLOBIN 28.9 pg (27.0-33.0); MEAN CORPUSCULAR HGB CONC 33.6 g/dl (32.0-36.5); MONO # 0.7 10^3/uL (0.0-0.8); MONO % 7.5 % (2.0-8.0); NEUTROPHILS # 5.9 10^3/uL (1.5-8.5); NEUTROPHILS % 60.5 % (36.0-66.0); PLATELET COUNT, AUTOMATED 283 10^3/uL (150-450); RED BLOOD COUNT 4.99 10^6/uL (4.30-6.10); WHITE BLOOD COUNT 9.7 10^3/uL (4.0-10.0)
[2023-05-28 18:02] LABS: HEMOGLOBIN A1c 4.5 % (4.0-6.0); THYROID STIMULATING HORMONE 1.182 uIU/ML (0.55-4.78)
[2023-05-28 18:04] LABS: ALKALINE PHOSPHATASE 133 U/L (46-116); ALT/SGPT 22 U/L (7.0-40); AST/SGOT 19 U/L (<34); BILIRUBIN,TOTAL 0.3 MG/DL (0.3-1.2); BLOOD UREA NITROGEN 12 MG/DL (9-23); CALCIUM LEVEL 9.4 MG/DL (8.5-10.1); CARBON DIOXIDE LEVEL 29 MMOL/L (20-31); CHLORIDE LEVEL 106 MMOL/L (98-107); CHOLESTEROL LEVEL 135 MG/DL (<200); CHOLESTEROL RISK RATIO 4.62 (<5); CREATININE FOR GFR 0.93 MG/DL (0.70-1.30); GLOMERULAR FILTRATION RATE > 60.0 (>60); GLUCOSE, FASTING 86 MG/DL (60-100); HDL CHOLESTEROL 29.2 MG/DL (>40); NON-HDL-C 105.8 MG/DL; POTASSIUM SERUM 4.6 MMOL/L (3.5-5.1); SODIUM LEVEL 142 MMOL/L (136-145); TOTAL 25(OH) VITAMIN D 14.1 NG/ML (20.0-100.0); TOTAL PROTEIN 6.9 G/DL (5.7-8.2); TRIGLYCERIDES LEVEL 89 MG/DL (<150)
== END ==
LOC: M LAB REF 16:51
PROVIDERS: ATTEND Nurse Practitioner Family
DX: Z68.28 Body mass index [BMI] 28.0-28.9, adult (principal); Z11.9 Encounter for screening for infectious and parasitic diseases, unspecified; E55.9 Vitamin D deficiency, unspecified; E66.3 Overweight; R53.83 Other fatigue

== ENCOUNTER 2023-08-06 11:37 | Emergency (ER) | payer OTHER ==
[~2023-08-06] VITALS: Ht 175.3 cm; Wt 91.2 kg
[2023-08-06 11:38] VITALS: BP 135/66; TEMP 97.5; O2SAT 98
== END 2023-08-06 14:16 | disposition left against medical advice (07) ==
LOC: M ED 11:37
DX: Z53.21 Procedure and treatment not carried out due to patient leaving prior to being seen by health care provider (principal)

== ENCOUNTER 2025-04-01 19:57 | Emergency (ER) | payer OTHER, SELFPAY ==
[~2025-04-01] VITALS: Ht 175.3 cm; Wt 100.6 kg
[~2025-04-01 19:57] MED LIST changes: +LIDO1ADH93 TD; -LIDO5DIS41 TD
[2025-04-01 19:58] VITALS: BP 127/60; TEMP 97.4; O2SAT 97
== END 2025-04-01 21:01 | disposition left against medical advice (07) ==
LOC: M ED 19:57
DX: Z53.21 Procedure and treatment not carried out due to patient leaving prior to being seen by health care provider (principal)